=== PATIENT | male | born 1995 | race Caucasian/White ===

== ENCOUNTER 2022-01-23 16:09 | Emergency (ER) | payer OTHER ==
[2022-01-23 16:25] VITALS: BP 140/70
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
[2022-01-23] MEDS ORDERED: ACETAMINOPHEN 325 MG TABLET PO STA (17:47)
[2022-01-23] MEDS ORDERED: IBUPROFEN 600 MG TABLET PO STA (17:47)
== END 2022-01-23 17:57 | disposition home or self-care (01) ==
LOC: ED 16:09
DX: S46.811A Strain of other muscles, fascia and tendons at shoulder and upper arm level, right arm, initial encounter (principal); V89.2XXA Person injured in unspecified motor-vehicle accident, traffic, initial encounter; Y93.89 Activity, other specified; Y99.8 Other external cause status
CPT/HCPCS: 99282; A9270